=== PATIENT | female | born 1960 | race Caucasian/White ===

== ENCOUNTER 2017-02-26 14:51 | Observation (INO) | payer SELFPAY ==
[~2017-02-26] VITALS: Ht 160 cm; Wt 86.1 kg
[2017-02-26] VITALS (12 sets, daily range): BP systolic 165–187; BP diastolic 88–115; PULSE 60–78; RESP 15–20; TEMP 97.7–98.5; O2SAT 95–99
[2017-02-26] MEDS ORDERED: DICL75TA PO (15:16)
[2017-02-26] MEDS ORDERED: NITROGLYCERIN 0.4 MG SL 25 TABS/BTL SL SCH (15:45)
[2017-02-26] MEDS ORDERED: ASPIRIN 81 MG CHEW TAB PO ONE ×2 (15:45→17:15)
[2017-02-26] MEDS ORDERED: SODIUM CHLORIDE 0.9% FLUSH 10 ML FLUSH IVF PRN (15:45)
--- NOTE | 2017-02-26 15:57 | RADRPT ---
EXAM DATE/TIME: 02/26/2017 15:41 [facility] COMPARISON: No previous studies available for comparison. INDICATIONS : Chest pain. MEDICAL HISTORY : None. SURGICAL HISTORY : None. ENCOUNTER: Initial ACUITY: 1 day PAIN SCORE: 4/10 LOCATION: Bilateral chest FINDINGS: A single view of the chest demonstrates the lungs to be symmetrically aerated without evidence of mas s, infiltrate or effusion. The cardiomediastinal contours are unremarkable. Osseous structures are intact. CONCLUSION: Normal examination. Dudley Anderson MD on February 26, 2017 at 15:55 Board Certified Radiologist. This report was verified electronically.
[2017-02-26 16:02] LABS: AUTOMATED NEUTROPHIL # 5.9 TH/MM3 (1.8-7.7); BASOPHIL % 0.4 % (0.0-2.0); EOSINOPHIL # 0.3 TH/MM3 (0-0.4); EOSINOPHIL % 2.7 % (0.0-4.0); HEMATOCRIT 40.1 % (35.0-46.0); HEMO FLAGS DIFF FINAL; LYMPH % 29.9 % (9.0-44.0); MEAN CORPUSCULAR HEMOGLOBIN 28.5 PG (27.0-34.0); MONO % 6.9 % (0.0-8.0); NEUT % 60.1 % (16.0-70.0); PLATELET COUNT 359 TH/MM3 (150-450); RED BLOOD COUNT 4.51 MIL/MM3 (4.00-5.30); RED CELL DISTRIBUTION WIDTH 13.1 % (11.6-17.2); WHITE BLOOD COUNT 9.9 TH/MM3 (4.0-11.0)
[2017-02-26 16:13] LABS: CHLORIDE 103 MEQ/L (98-107); POTASSIUM 3.7 MEQ/L (3.5-5.1); SODIUM (NA) 138 MEQ/L (136-145)
[2017-02-26 16:17] LABS: ANION GAP 5 MEQ/L (5-15); BICARBONATE 29.7 MEQ/L (21.0-32.0); BLOOD UREA NITROGEN 18 MG/DL (7-18); MAGNESIUM 2.2 MG/DL (1.5-2.5)
[2017-02-26 16:20] LABS: ALT (GPT) 32 U/L (10-53); APTT (PATIENT) 27.8 SEC (24.3-30.1); AST (GOT) 16 U/L (15-37); GLOMERULAR FILTRATION RATE 87 ML/MIN (>89); INTERNATIONAL NORMALIZED RATIO 0.9 RATIO; PROTHROMBIN TIME - PATIENT 9.9 SEC (9.8-11.6)
[2017-02-26 16:21] LABS: TOTAL BILIRUBIN ADULT 0.7 MG/DL (0.2-1.0)
[2017-02-26 16:23] LABS: ALKALINE PHOSPHATASE 114 U/L (45-117)
[2017-02-26 16:38] LABS: CREATINE KINASE 85 U/L (26-192)
--- NOTE | 2017-02-26 16:55 | PD ---
HPI Chief Complaint: Hypertension Time Seen by Provider: 15:30 Travel History International Travel<30 days: No Contact w/Intl Traveler<30days: No Traveled to known affect area: No History of Present Illness HPI 57-year-old female complains of retrosternal chest pain associated with high blood pressure approximately 200/104 past few days. She called her primary care provider and was advised to check her blood pressure at [facility] where was 180/100 multiple times thus prompting her ER evaluation. Here she describes a mild persistent retrocardiac chest pain/discomfort. She denies a history of diabetes high blood pressure or cholesterol. There is no family history coronary artery disease that she is aware of. She does not smoke. She reports her has recently an ICU patient for 2 months which made her very anxious. [facility] Past Medical History Medical History: Denies Significant Hx Cardiovascular Problems: Yes (hypertension) Diminished Hearing: No Tetanus Vaccination: < 5 Years Influenza Vaccination: Yes ?: Not Past Surgical History Surgical History: No Previous Surgery Hysterectomy: Yes Social History Alcohol Use: No Tobacco Use: No Substance Use: No Allergies-Medications (Allergen,Severity, Reaction): Coded Allergies: No Known Allergies (Verified Allergy, Unknown, 02/26/17) Reported Meds & Prescriptions Reported Meds & Active Scripts Active Reported Diclofenac Sodium DR (Diclofenac Sodium) 75 Mg Tabdr 75 Mg PO BID Review of Systems Except as stated in HPI: all other systems reviewed are Neg General / Constitutional: No: Fever Cardiovascular: Positive: Chest Pain or Discomfort Physical Exam Narrative GENERAL: 57-year-old female pleasant well-nourished well-developed mildly anxious SKIN: Focused skin assessment warm/dry. HEAD: Atraumatic. Normocephalic. EYES: Pupils equal and round. No scleral icterus. No injection or drainage. ENT: No nasal bleeding or discharge. Mucous membranes pink and moist. NECK: Trachea midline. No JVD. CARDIOVASCULAR: Regular rate and rhythm with no murmur. Patient appears well perfused. RESPIRATORY: Patient speaking in full sentences. The lungs are clear. GASTROINTESTINAL: Abdomen soft, non-tender, nondistended. Hepatic and splenic margins not palpable. MUSCULOSKELETAL: No obvious deformities. No clubbing. No cyanosis. No edema. NEUROLOGICAL: Awake and alert. No obvious cranial nerve deficits. Motor grossly within normal limits. Normal speech. PSYCHIATRIC: Appropriate mood and affect; insight and judgment normal. Data Data Last Documented VS Vital Signs Date Time Temp Pulse Resp B/P (MAP) Pulse Ox O2 Delivery O2 Flow Rate FiO2 02/26/17 16:14 78 20 177/101 (126) 96 02/26/17 15:41 Room Air 02/26/17 14:59 98.5 vital signs reviewed Orders Orders Electrocardiogram (02/26/17 15:36) Ckmb (Isoenzyme) Profile (02/26/17 15:36) Complete Blood Count With Diff (02/26/17 15:36) Comprehensive Metabolic Panel (02/26/17 15:36) Magnesium (Mg) (02/26/17 15:36) Prothrombin Time / Inr (Pt) (02/26/17 15:36) Act Partial Throm Time (Ptt) (02/26/17 15:36) Troponin I (02/26/17 15:36) Lipase (02/26/17 15:36) Chest, Single Ap (02/26/17 15:36) Ecg Monitoring (02/26/17 15:36) Bilateral Bp Monitoring (02/26/17 15:36) Iv Access Insert/Monitor (02/26/17 15:36) Oximetry (02/26/17 15:36) Oxygen Administration (02/26/17 15:36) Aspirin Chew (Aspirin Chew) (02/26/17 15:45) Sodium Chloride 0.9% Flush (Ns Flush) (02/26/17 15:45) Nitroglycerin Sl (Nitrostat Sl) (02/26/17 15:45) Admit Order (Ed Use Only) (02/26/17 ) Certified Coder / Telemetry [email or web address] (02/26/17 16:50) Vital Signs (Adult) Q4H (02/26/17 16:50) Diet Heart Healthy (02/26/17 Dinner) Activity Bed Rest (02/26/17 16:50) Labs Laboratory Tests Test 02/26/17 15:50 White Blood Count 9.9 TH/MM3 Red Blood Count 4.51 MIL/MM3 Hemoglobin 12.8 GM/DL Hematocrit 40.1 % Mean Corpuscular Volume 89.0 FL Mean Corpuscular Hemoglobin 28.5 PG Mean Corpuscular Hemoglobin Concent 32.0 % Red Cell Distribution Width 13.1 % Platelet Count 359 TH/MM3 Mean Platelet Volume 8.2 FL Neutrophils (%) (Auto) 60.1 % Lymphocytes (%) (Auto) 29.9 % Monocytes (%) (Auto) 6.9 % Eosinophils (%) (Auto) 2.7 % Basophils (%) (Auto) 0.4 % Neutrophils # (Auto) 5.9 TH/MM3 Lymphocytes # (Auto) 3.0 TH/MM3 Monocytes # (Auto) 0.7 TH/MM3 Eosinophils # (Auto) 0.3 TH/MM3 Basophils # (Auto) 0.0 TH/MM3 CBC Comment DIFF FINAL Differential Comment Prothrombin Time 9.9 SEC Prothromb Time International Ratio 0.9 RATIO Activated Partial Thromboplast Time 27.8 SEC Blood Urea Nitrogen 18 MG/DL Creatinine 0.70 MG/DL Random Glucose 90 MG/DL Total Protein 7.9 GM/DL Albumin 3.5 GM/DL Calcium Level 8.9 MG/DL Magnesium Level 2.2 MG/DL Alkaline Phosphatase 114 U/L Aspartate Amino Transf (AST/SGOT) 16 U/L Alanine Aminotransferase (ALT/SGPT) 32 U/L Total Bilirubin 0.7 MG/DL Sodium Level 138 MEQ/L Potassium Level 3.7 MEQ/L Chloride Level 103 MEQ/L Carbon Dioxide Level 29.7 MEQ/L Anion Gap 5 MEQ/L Estimat Glomerular Filtration Rate 87 ML/MIN Total Creatine Kinase 85 U/L Troponin I LESS THAN 0.02 NG/ML Lipase 113 U/L MDM Medical Decision Making Medical Screen Exam Complete: Yes Emergency Medical Condition: Yes Differential Diagnosis NSTEMI, unstable angina, coronary vasospasm, PE, PTX, aortic dissection, pericarditis, myocarditis, endocarditis, PNA, esophageal disease, aneurysm, musculoskeletal etiologies, anxiety, cocaine/sympathomimetic abuse Narrative Course EKG shows a sinus rhythm rate of 69 ischemic injury pattern CBC & BMP Diagram 02/26/17 15:50 Total Protein 7.9, Albumin 3.5, Calcium Level 8.9, Magnesium Level 2.2, Alkaline Phosphatase 114, Aspartate Amino Transf (AST/SGOT) 16, Alanine Aminotransferase (ALT/SGPT) 32, Total Bilirubin 0.7 The troponin is less than 0.02 The patient reports significant reduction in pain severity after the nitroglycerin sublingual. Blood pressure has improved marginally to about 170/ 100. In this scenario keeping the patient for chest pain center evaluation with serial enzymes and provocative examination considered most reasonable next step for evaluation. The patient is agreeable w this plan. Case discussed with Dr. Moses. Diagnosis Primary Impression: Chest pain Qualified Codes: R07.9 - Chest pain, unspecified Additional Impression: Hypertension Qualified Codes: I10 - Essential (primary) hypertension Admitting Information Admitting Physician Requests: Observation Shoaib Ordoñez MD Feb 26, 2017 16:55
[2017-02-26] MEDS ORDERED: TEMAZEPAM 15 MG CAP PO PRN (17:15)
[2017-02-26] MEDS ORDERED: RESP: ALBUTEROL 2.5 MG/IPRATROPIUM 0.5 MG NEB (PRN) NEB (17:15)
[2017-02-26] MEDS ORDERED: SODIUM CHLORIDE 0.9% FLUSH 10 ML FLUSH IV FLUSH PRN (17:15)
[2017-02-26] MEDS ORDERED: hydrALAZINE HCL 25 MG TAB PO PRN (17:15)
[2017-02-26] MEDS ORDERED: NITROGLYCERIN 0.4 MG SL 25 TABS/BTL SL PRN (17:15)
[2017-02-26] MEDS ORDERED: ENALAPRILAT 2.5 MG/2 ML VIAL IV PUSH PRN (17:15)
[2017-02-26 19:52] LABS: CREATINE KINASE 74 U/L (26-192)
[2017-02-26] MEDS: METOPROLOL TARTRATE 50 MG TAB PO SCH (20:35)
[2017-02-26] MEDS: SODIUM CHLORIDE 0.9% FLUSH 10 ML FLUSH IV FLUSH SCH (20:35)
[2017-02-26 23:07] LABS: CREATINE KINASE 64 U/L (26-192)
[2017-02-27] VITALS: BP 127/81; PULSE 66; RESP 20; TEMP 97.1; O2SAT 95
[2017-02-27 04:00] VITALS: BP 127/67; PULSE 69; RESP 18; TEMP 97.7; O2SAT 94
[2017-02-27 07:10] LABS: CHLORIDE 107 MEQ/L (98-107); POTASSIUM 4.3 MEQ/L (3.5-5.1); SODIUM (NA) 142 MEQ/L (136-145)
[2017-02-27 07:14] LABS: ANION GAP 7 MEQ/L (5-15); BICARBONATE 28.1 MEQ/L (21.0-32.0); BLOOD UREA NITROGEN 15 MG/DL (7-18)
[2017-02-27 07:17] LABS: ALT (GPT) 27 U/L (10-53); AST (GOT) 13 U/L (15-37); GLOMERULAR FILTRATION RATE 85 ML/MIN (>89)
[2017-02-27 07:20] LABS: ALKALINE PHOSPHATASE 101 U/L (45-117)
[2017-02-27 08:49] VITALS: BP 127/83; PULSE 66; RESP 16; TEMP 97.2; O2SAT 95
--- NOTE | 2017-02-27 08:49 | HHI.HP ---
[facility] Physician Ignacio Grigsby MD Admission Diagnosis Chest Pain; Hypertension Diagnoses: Travel History International Travel<30 Days: No Contact w/Intl Traveler <30 Da: No Traveled to Known Affected Are: No History of Present Illness Written by Rayo Bingham, acting as scribe for Dr. Moses on 02/27/17 at 08 :48. Past Family Social History Allergies: Coded Allergies: No Known Allergies (Verified Allergy, Unknown, 02/26/17) Physical Exam Vital Signs Vital Signs Date Time Temp Pulse Resp B/P (MAP) Pulse Ox O2 Delivery O2 Flow Rate FiO2 02/27/17 04:00 97.7 69 18 127/67 (87) 94 02/27/17 00:00 97.1 66 20 127/81 (96) 95 02/26/17 23:59 63 02/26/17 21:20 95 21 02/26/17 20:28 165/107 (126) 02/26/17 20:00 97.7 72 20 187/88 (121) 97 02/26/17 19:59 76 02/26/17 17:46 02/26/17 17:40 97.8 60 15 182/115 (137) 02/26/17 17:09 74 18 166/101 (122) 99 02/26/17 16:14 78 20 177/101 (126) 96 02/26/17 16:00 97 21 02/26/17 15:41 97 Room Air 02/26/17 15:41 97 Room Air 02/26/17 15:21 184/97 (126) 02/26/17 14:59 98.5 77 16 180/107 (131) 98 Physical Exam GENERAL: This is a well-nourished, well-developed patient, in no apparent distress. SKIN: No rashes, ecchymoses or lesions. Cool and dry. HEAD: Atraumatic. Normocephalic. No temporal or scalp tenderness. EYES: Pupils equal round and reactive. Extraocular motions intact. No scleral icterus. No injection or drainage. ENT: Nose without bleeding, purulent drainage or septal hematoma. Throat without erythema, tonsillar hypertrophy or exudate. Uvula midline. Airway patent. NECK: Trachea midline. No JVD or lymphadenopathy. Supple, nontender, no meningeal signs. CARDIOVASCULAR: Regular rate and rhythm without murmurs, gallops, or rubs. RESPIRATORY: Clear to auscultation. Breath sounds equal bilaterally. No wheezes , rales, or rhonchi. GASTROINTESTINAL: Abdomen soft, non-tender, nondistended. No hepato-splenomegaly , or palpable masses. No guarding. MUSCULOSKELETAL: Extremities without clubbing, cyanosis, or edema. No joint tenderness, effusion, or edema noted. No calf tenderness. Negative Homans sign bilaterally. NEUROLOGICAL: Awake and alert. Cranial nerves II through XII intact. Motor and sensory grossly within normal limits. Five out of 5 muscle strength in all muscle groups. Normal speech. Laboratory Laboratory Tests Test 02/26/17 15:50 02/26/17 19:15 02/26/17 22:20 02/27/17 06:33 White Blood Count 9.9 Red Blood Count 4.51 Hemoglobin 12.8 Hematocrit 40.1 Mean Corpuscular Volume 89.0 Mean Corpuscular Hemoglobin 28.5 Mean Corpuscular Hemoglobin Concent 32.0 Red Cell Distribution Width 13.1 Platelet Count 359 Mean Platelet Volume 8.2 Neutrophils (%) (Auto) 60.1 Lymphocytes (%) (Auto) 29.9 Monocytes (%) (Auto) 6.9 Eosinophils (%) (Auto) 2.7 Basophils (%) (Auto) 0.4 Neutrophils # (Auto) 5.9 Lymphocytes # (Auto) 3.0 Monocytes # (Auto) 0.7 Eosinophils # (Auto) 0.3 Basophils # (Auto) 0.0 CBC Comment DIFF FINAL Differential Comment Prothrombin Time 9.9 Prothromb Time International Ratio 0.9 Activated Partial Thromboplast Time 27.8 Blood Urea Nitrogen 18 15 Creatinine 0.70 0.71 Random Glucose 90 86 Total Protein 7.9 6.8 Albumin 3.5 3.2 Calcium Level 8.9 8.8 Magnesium Level 2.2 Alkaline Phosphatase 114 101 Aspartate Amino Transf (AST/SGOT) 16 13 Alanine Aminotransferase (ALT/SGPT) 32 27 Total Bilirubin 0.7 1.0 Sodium Level 138 142 Potassium Level 3.7 4.3 Chloride Level 103 107 Carbon Dioxide Level 29.7 28.1 Anion Gap 5 7 Estimat Glomerular Filtration Rate 87 85 Total Creatine Kinase 85 74 64 Troponin I LESS THAN 0.02 LESS THAN 0.02 LESS THAN 0.02 Lipase 113 Result Diagram: 02/26/17 1550 02/27/17 0633 Caprini VTE Risk Assessment Caprini Risk Assessment Model Point Value = 1 Point Value = 2 Point Value = 3 Point Value = 5 Age 41-60 Minor surgery BMI > 25 kg/m2 Swollen legs Varicose veins or History of unexplained or recurrent spontaneous Oral contraceptives or hormone replacement Sepsis (< 1 month) Serious lung disease, including pneumonia (< 1 month) Abnormal pulmonary function Acute myocardial infarction Congestive heart failure (< 1 month) History of inflammatory bowel disease Medical patient at bed rest Age 61-74 Arthroscopic surgery Major open surgery (> 45 min) Laparoscopic surgery (> 45 min) Malignancy Confined to bed (> 72 hours) Immobilizing plaster cast Central venous access Age >= 75 History of VTE Family history of VTE Factor V Leiden Prothrombin [id number] Lupus anticoagulant Anticardiolipin antibodies Elevated serum homocysteine Heparin-induced thrombocytopenia Other congenital or acquired thrombophilia Stroke (< 1 month) Elective arthroplasty Hip, pelvis, or leg fracture Acute spinal cord injury (< 1 month) Prophylaxis Regimen Total Risk Factor Score Risk Level Prophylaxis Regimen 0-1 Low Early ambulation 2 Moderate Order ONE of the following: *Sequential Compression Device (SCD) *Heparin 5000 units SQ BID 3-4 Higher Order ONE of the following medications: *Heparin 5000 units SQ TID *Enoxaparin/Lovenox 40 mg SQ daily (WT < 150 kg, CrCl > 30 mL/min) *Enoxaparin/Lovenox 30 mg SQ daily (WT < 150 kg, CrCl > 10-29 mL/min) *Enoxaparin/Lovenox 30 mg SQ BID (WT < 150 kg, CrCl > 30 mL/min) AND/OR *Sequential Compression Device (SCD) 5 or more Highest Order ONE of the following medications: *Heparin 5000 units SQ TID (Preferred with Epidurals) *Enoxaparin/Lovenox 40 mg SQ daily (WT < 150 kg, CrCl > 30 mL/min) *Enoxaparin/Lovenox 30 mg SQ daily (WT < 150 kg, CrCl > 10-29 mL/min) *Enoxaparin/Lovenox 30 mg SQ BID (WT < 150 kg, CrCl > 30 mL/min) AND *Sequential Compression Device (SCD) Rayo Bingham Feb 27, 2017 08:49
[2017-02-27 08:51] VITALS: BP 127/83; PULSE 66; RESP 16; TEMP 97.2; O2SAT 95
[2017-02-27] MEDS: SODIUM CHLORIDE 0.9% FLUSH 10 ML FLUSH IV FLUSH SCH (09:00)
[2017-02-27] MEDS: METOPROLOL TARTRATE 50 MG TAB PO SCH (09:00)
[2017-02-27 09:28] LABS: HDL CHOLESTEROL 43.8 MG/DL (40.0-60.0); LDL CHOLESTEROL 102 MG/DL (0-99)
--- NOTE | 2017-02-27 09:46 | HHI.HP ---
[facility] Ign[facility]igs[facility] Admission Diagnosis Chest Pain; Hypertension Diagnoses: (1) Accelerated hypertension Diagnosis: Principal (2) Chest pain Diagnosis: Principal Chief Complaint: Patient sent here by her orthopedic because of elevated blood pressure Travel History International Travel<30 Days: No Contact w/Intl Traveler <30 Da: No Traveled to Known Affected Are: No History of Present Illness Written by Rayo Bingham, acting as scribe for Dr. Moses on 02/27/17 at 09 :46. 57-year-old female with known history of hypertension who presented to the hospital at the request of her orthopedic physician because of high blood pressure. Patient indicates that she went to have her left knee evaluated by orthopedic and had cortisone injection performed. She was called yesterday and notified that she needed to go to [facility] to have her blood pressure checked because her blood pressure was elevated at the orthopedics office. The patient had her blood pressure checked at [facility] multiple times in her blood pressure 180/100. Because of blood pressure still elevated she was told to go to the emergency department for evaluation. Upon presentation patient blood pressure 180/107. Patient was given Vasotec with improvement of her blood pressure. The patient does have history of hypertension in which she was treated 8 years ago, however suddenly she was taken off blood pressure medication. While patient was here she indicated that she was having 3 week history of chest discomfort. She indicates that she was having she felt like someone punching her in the chest with associated nausea and shortness of breath lasted for approximately 5 minutes 1-2 times a day for the last 3 weeks. Patient denies any radiation of pain to the neck, back, shoulder, arm. She denied any vomiting, diaphoresis, lightheadedness, dizziness. Because of the chest discomfort is recommended by the ER physician that patient be observed and chest pain center for further evaluation management. Review of Systems Respiratory: COMPLAINS OF: Shortness of breath Cardiovascular: COMPLAINS OF: Chest pain Gastrointestinal: COMPLAINS OF: Nausea Except as stated in HPI: all other systems reviewed are Neg Past Family Social History Past Medical History Hypertension Past Surgical History Abdominoplasty Left knee arthroscopic surgery Reported Medications Reported Meds & Active Scripts Active Reported Diclofenac Sodium DR (Diclofenac Sodium) 75 Mg Tabdr 75 Mg PO BID Allergies: Coded Allergies: No Known Allergies (Verified Allergy, Unknown, 02/26/17) Family History Reviewed and unremarkable for any heart disease, lung disease, diabetes, kidney disease, seizure, stroke Social History Patient has any tobacco, alcohol or illicit drugs Physical Exam Vital Signs Vital Signs Date Time Temp Pulse Resp B/P (MAP) Pulse Ox O2 Delivery O2 Flow Rate FiO2 02/27/17 08:49 97.2 66 16 127/83 (98) 95 02/27/17 04:00 97.7 69 18 127/67 (87) 94 02/27/17 00:00 97.1 66 20 127/81 (96) 95 02/26/17 23:59 63 02/26/17 21:20 95 21 02/26/17 20:28 165/107 (126) 02/26/17 20:00 97.7 72 20 187/88 (121) 97 02/26/17 19:59 76 02/26/17 17:46 02/26/17 17:40 97.8 60 15 182/115 (137) 02/26/17 17:09 74 18 166/101 (122) 99 02/26/17 16:14 78 20 177/101 (126) 96 02/26/17 16:00 97 21 02/26/17 15:41 97 Room Air 02/26/17 15:41 97 Room Air 02/26/17 15:21 184/97 (126) 02/26/17 14:59 98.5 77 16 180/107 (131) 98 Physical Exam GENERAL: Well-developed, well-nourished, in no acute distress. alert and orientated HEENT: Head is normocephalic without any lesions or masses noted. Facial features are symmetric. Eyes: Pupils equal round reactive to light. Extraocular muscles are intact. Conjunctivae were clear. Oropharyngeal: Pharynx without any erythema edema. Tongue is midline without deviation. Buccal mucosa is moist without any masses or lesions NECK: Supple without any masses. Trachea midline no deviation. No JVD, no bruits are appreciated CARDIAC: Regular rhythm, regular rate. S1/S2 are heard. No murmurs gallops or rubs. LUNGS: Clear to auscultation bilaterally. No wheeze, rhonchi or rales. No use of accessory muscles on inspiration or expiration. ABDOMEN: Soft, nontender. Nondistended. Bowel sounds heard in all 4 quadrants. No organomegaly or masses. Negative rebound, negative guarding EXTREMITIES: No edema, pulses are equal bilaterally. No cyanosis or clubbing NEUROLOGY: Mood and affect appear appropriate. Cranial nerves II through XII grossly intact. Muscle strength 5/5 in upper and lower extremities bilaterally. Deep tendon reflexes are 2+ in upper and lower extremities bilaterally. Laboratory Laboratory Tests Test 02/26/17 15:50 02/26/17 19:15 02/26/17 22:20 02/27/17 06:33 White Blood Count 9.9 Red Blood Count 4.51 Hemoglobin 12.8 Hematocrit 40.1 Mean Corpuscular Volume 89.0 Mean Corpuscular Hemoglobin 28.5 Mean Corpuscular Hemoglobin Concent 32.0 Red Cell Distribution Width 13.1 Platelet Count 359 Mean Platelet Volume 8.2 Neutrophils (%) (Auto) 60.1 Lymphocytes (%) (Auto) 29.9 Monocytes (%) (Auto) 6.9 Eosinophils (%) (Auto) 2.7 Basophils (%) (Auto) 0.4 Neutrophils # (Auto) 5.9 Lymphocytes # (Auto) 3.0 Monocytes # (Auto) 0.7 Eosinophils # (Auto) 0.3 Basophils # (Auto) 0.0 CBC Comment DIFF FINAL Differential Comment Prothrombin Time 9.9 Prothromb Time International Ratio 0.9 Activated Partial Thromboplast Time 27.8 Blood Urea Nitrogen 18 15 Creatinine 0.70 0.71 Random Glucose 90 86 Total Protein 7.9 6.8 Albumin 3.5 3.2 Calcium Level 8.9 8.8 Magnesium Level 2.2 Alkaline Phosphatase 114 101 Aspartate Amino Transf (AST/SGOT) 16 13 Alanine Aminotransferase (ALT/SGPT) 32 27 Total Bilirubin 0.7 1.0 Sodium Level 138 142 Potassium Level 3.7 4.3 Chloride Level 103 107 Carbon Dioxide Level 29.7 28.1 Anion Gap 5 7 Estimat Glomerular Filtration Rate 87 85 Total Creatine Kinase 85 74 64 Troponin I LESS THAN 0.02 LESS THAN 0.02 LESS THAN 0.02 Lipase 113 Triglycerides Level 225 Cholesterol Level 191 LDL Cholesterol 102 HDL Cholesterol 43.8 Cholesterol/HDL Ratio 4.36 Result Diagram: 02/26/17 1550 02/27/17 0633 Imaging Last Impressions Chest X-Ray 02/26/17 1536 Signed Impressions: Service Date/Time: Sunday, February 26, 2017 15:41 - CONCLUSION: Normal examination. MD Leonardo Goode VTE Risk Assessment Leonardo VTE Risk Assessment: No/Low Risk (score <= 1) Santhoshrini Risk Assessment Model Point Value = 1 Point Value = 2 Point Value = 3 Point Value = 5 Age 41-60 Minor surgery BMI > 25 kg/m2 Swollen legs Varicose veins or History of unexplained or recurrent spontaneous Oral contraceptives or hormone replacement Sepsis (< 1 month) Serious lung disease, including pneumonia (< 1 month) Abnormal pulmonary function Acute myocardial infarction Congestive heart failure (< 1 month) History of inflammatory bowel disease Medical patient at bed rest Age 61-74 Arthroscopic surgery Major open surgery (> 45 min) Laparoscopic surgery (> 45 min) Malignancy Confined to bed (> 72 hours) Immobilizing plaster cast Central venous access Age >= 75 History of VTE Family history of VTE Factor V Leiden Prothrombin [id number] Lupus anticoagulant Anticardiolipin antibodies Elevated serum homocysteine Heparin-induced thrombocytopenia Other congenital or acquired thrombophilia Stroke (< 1 month) Elective arthroplasty Hip, pelvis, or leg fracture Acute spinal cord injury (< 1 month) Prophylaxis Regimen Total Risk Factor Score Risk Level Prophylaxis Regimen 0-1 Low Early ambulation 2 Moderate Order ONE of the following: *Sequential Compression Device (SCD) *Heparin 5000 units SQ BID 3-4 Higher Order ONE of the following medications: *Heparin 5000 units SQ TID *Enoxaparin/Lovenox 40 mg SQ daily (WT < 150 kg, CrCl > 30 mL/min) *Enoxaparin/Lovenox 30 mg SQ daily (WT < 150 kg, CrCl > 10-29 mL/min) *Enoxaparin/Lovenox 30 mg SQ BID (WT < 150 kg, CrCl > 30 mL/min) AND/OR *Sequential Compression Device (SCD) 5 or more Highest Order ONE of the following medications: *Heparin 5000 units SQ TID (Preferred with Epidurals) *Enoxaparin/Lovenox 40 mg SQ daily (WT < 150 kg, CrCl > 30 mL/min) *Enoxaparin/Lovenox 30 mg SQ daily (WT < 150 kg, CrCl > 10-29 mL/min) *Enoxaparin/Lovenox 30 mg SQ BID (WT < 150 kg, CrCl > 30 mL/min) AND *Sequential Compression Device (SCD) Assessment and Plan Problem List: (1) Chest pain ICD Code: R07.9 - Chest pain, unspecified Status: Acute (2) Accelerated hypertension ICD Code: I10 - Essential (primary) hypertension Assessment and Plan 57-year-old female with Chest pain, patient with increased risk factors include age, hypertension Patient has been ruled out for acute coronary event with serial cardiac enzymes that have remained negative Serial EKGs were performed which show sinus rhythm without any changes Patient unable to perform exercise stress test due to left knee pain. Myocardial perfusion test did not indicate any underlying ischemia, low risk Continue aspirin Accelerated hypertension Blood pressure stable this time Continue metoprolol 50 mg twice daily Hyperlipidemia LDL 102 Counseled on by some modifications Start low-dose Lipitor 10 mg daily DVT prevention Low risk, early ambulation Discharge disposition Discharge home in stable condition Activity: Ad toney. Diet: Healthy heart diet Medications per medication reconciliation Follow-up primary medical doctor in one week This note was transcribed by lashell Bingham. I, Dr. Dean Moses personally performed the history, physical exam, and medical decision making; and confirmed the accuracy of the information in the transcribed note. Authenticated by Dr. Dean Moses on 02/27/17 at 09:46. Code Status Full code Discussed Condition With Patient Problem Qualifiers (1) Chest pain: Qualified Codes: R07.9 - Chest pain, unspecified Rayo Bingham Feb 27, 2017 09:46 Dean Moses MD Feb 27, 2017 09:46
[2017-02-27] MEDS ORDERED: REGADENOSON INJ 0.4 MG/5 ML SYR IV ONE (10:22)
[2017-02-27] MEDS ORDERED: ATORVASTATIN 10 MG TAB PO SCH (11:00)
--- NOTE | 2017-02-27 11:36 | RADRPT ---
EXAM DATE/TIME: 02/27/2017 10:10 [facility] COMPARISON: No previous studies available for comparison. INDICATIONS : Mid chest pain for one day. Angina. DOSE: 26.1 mCi Tc99m Myoview at stress. 8.7 mCi Tc99m Myoview at rest. 0.4 mg Lexiscan STRESS SYMPTOMS: Chest pressure and shortness of breath. EJECTION FRACTION: 65% MEDICAL HISTORY : Hypertension. SURGICAL HISTORY : Hysterectomy. ENCOUNTER: Initial ACUITY: 1 day PAIN SCALE: 7/10 LOCATION: Midsternal chest TECHNIQUE: The patient underwent pharmacologic stress with infusion of prescribed dose. Continuous ECG tracing was monitored during stress. Gated SPECT imaging was performed after stress and conventional SPECT i maging was performed at rest. The examination was performed on a SPECT/CT scanner, both attenuation and non-corrected datasets were reviewed. FINDINGS: DISTRIBUTION: The maximum perfused segment at stress is in the septal wall. PERFUSION STUDY: The pattern of perfusion at stress is within normal limits. GATED STUDY: There is intact wall motion and thickening without hypokinetic or dyskinetic segments. CONCLUSION: 1. No significant reversibility to suggest ischemia. 2. Normal motion with ejection fraction 65%. RISK CATEGORY: Low (<1% Annual Mortality Rate) Perry Reilly MD on February 27, 2017 at 11:30 Board Certified Radiologist. This report was verified electronically.
[2017-02-27] MEDS ORDERED: LIPI10TA PO (11:38)
[2017-02-27] MEDS ORDERED: METO-309 PO (11:38)
--- NOTE | 2017-02-27 11:39 | HHI.DCPOC ---
Discharge Care Plan Diagnosis: (1) Accelerated hypertension (2) Chest pain Goals to Promote Your Health * To prevent worsening of your condition and complications * To maintain your health at the optimal level Directions to Meet Your Goals Take your medications as prescribed Follow your dietary instruction Follow activity as directed Keep your appointments as scheduled Take your immunizations and boosters as scheduled If your symptoms worsen call your PCP, if no PCP go to Urgent Care Center or Emergency Room Smoking is Dangerous to Your Health. Avoid second hand smoke Call the 24-hour hour crisis hotline for domestic abuse at [facility] Feb 27, 2017 11:39
--- NOTE | 2017-02-27 14:01 | ECHRPT ---
Indication: htn h dis CONCLUSIONS The left ventricular systolic function is normal with an estimated ejection fraction in the range of 60-65%. Trace mitral valve regurgitation. There is mild tricuspid valve regurgitation. BP: / HR: Rhythm: MEASUREMENTS (Male / Female) Normal Values Technical Quality:Good 2D ECHO LV Diastolic Diameter PLAX 4.4 cm 4.2 - 5.9 / 3.9 - 5.3 cm LV Systolic Diameter PLAX 3.1 cm IVS Diastolic Thickness 1.5 cm 0.6 - 1.0 / 0.6 - 0.9 cm LVPW Diastolic Thickness 0.9 cm 0.6 - 1.0 / 0.6 - 0.9 cm LV Relative Wall Thickness 0.6 RV Internal Dim ED PLAX 2.9 cm M-MODE Aortic Root Diameter MM 2.8 cm LA Systolic Diameter MM 3.7 cm LA Ao Ratio MM 1.3 AV Cusp Separation MM 1.8 cm DOPPLER Mitral E Point Velocity 65.6 cm/s Mitral A Point Velocity 62.2 cm/s Mitral E to A Ratio 1.1 LV E' Lateral Velocity 9.3 cm/s Mitral E to LV E' Lateral Ratio 7.1 LV E' Septal Velocity 6.8 cm/s Mitral E to LV E' Septal Ratio 9.6 FINDINGS LEFT VENTRICLE The left ventricular systolic function is normal with an estimated ejection fraction in the range of 60-65%. Normal left ventricular size. No regional wall motion abnormalities are present. This study was not technically sufficient to allow for evaluation of left ventricular diastolic func tion. There is assymetric septal hypertrophy. RIGHT VENTRICLE Normal right ventricular size and systolic function. LEFT ATRIUM The left atrial size is normal. RIGHT ATRIUM The right atrial size is normal. ATRIAL SEPTUM Normal atrial septal thickness. AORTA The aortic root and proximal ascending aorta are normal in size on limited imaging. MITRAL VALVE Structurally normal mitral valve. Trace mitral valve regurgitation. No mitral valve stenosis. AORTIC VALVE Trileaflet aortic valve. No aortic valve stenosis or regurgitation. TRICUSPID VALVE Structurally normal tricuspid valve. There is mild tricuspid valve regurgitation. No tricuspid valve stenosis. PULMONARY VALVE The pulmonary valve is not well visualized. VESSELS The inferior vena cava is normal in size. PERICARDIUM No pericardial effusion. Edmundo Ordoñez DO (Electronically Signed) Final Date:27 February 2017 14:00
--- NOTE | 2017-02-27 14:40 | TR ---
Date Performed: 02/27/2017 Time Performed: 10:31:44 DOCTOR: Mars Acosta DRUG LIST: CLINICAL HISTORY: ANGINA REASON FOR TEST: Angina REASON FOR ENDING: OBSERVATION: CONCLUSION: Lexiscan stress test was performed under standard four minute protocol. Radionuclide was injected one minute prior to ending the test. No electrocardiographic abormalities were present to suggest ischemia. Nuclear imaging and interpretation are pending. COMMENTS:
--- NOTE | 2017-02-27 14:46 | EKG ---
Date Performed: 02/26/2017 Time Performed: 22:25:31 PTAGE: 57 years EKG: Sinus rhythm NORMAL ECG PREVIOUS TRACING : 02/26/2017 19.12 Compared to prior tracing no significant change DOCTOR: Edmundo Ordoñez Interpretating Date/Time 02/27/2017 14:44:57
--- NOTE | 2017-02-27 15:10 | EKG ---
Date Performed: 02/26/2017 Time Performed: 19:12:02 PTAGE: 57 years EKG: Sinus rhythm NORMAL ECG PREVIOUS TRACING : 02/26/2017 15.55 Compared to prior tracing no significant change DOCTOR: Edmundo Ordoñez Interpretating Date/Time 02/27/2017 15:08:13
--- NOTE | 2017-02-27 15:25 | EKG ---
Date Performed: 02/26/2017 Time Performed: 15:55:29 PTAGE: 57 years EKG: Sinus rhythm NORMAL ECG NO PREVIOUS TRACING DOCTOR: Edmundo Ordoñez Interpretating Date/Time 02/27/2017 15:24:56
== END 2017-02-27 13:00 | disposition home or self-care (01) ==
LOC: PHEFT 14:51 → PHEDA 16:52 → PH3A 17:40
PROVIDERS: ADMIT Hospitalist; ATTEND Hospitalist
DX: I10 Essential (primary) hypertension (principal); R06.02 Shortness of breath; R11.0 Nausea
CPT/HCPCS: 71010; 78452; 80053; 80061; 82550; 83690; 83735; 84484; 85025; 85610; 85730; 93005; 93017; 93306; 99285; A9502; G0378; J2785